=== PATIENT | female | born 1985 | race Caucasian/White ===

== ENCOUNTER 2022-01-16 13:35 | Emergency (ER) | payer OTHER, SELFPAY ==
[2022-01-16] VITALS (10 sets, daily range): BP systolic 94–116; BP diastolic 52–64; PULSE 55–83; RESP 16–18; TEMP 36.6; O2SAT 95–100; BMI 22.4
--- NOTE | 2022-01-16 15:12 | PC.NURSE ---
Provider Crew and RN at bedside. Patient set up for self swab.
--- NOTE | 2022-01-16 15:14 | PC.NURSE ---
patient reports abd pain and cramping in bladder. Reports pink tinged discharge. Has complicated history of PID, Tric and GC/CH.
--- NOTE | 2022-01-16 15:15 | ED_ITS ---
HPI - Female Genitourinary <KEM Castañeda - Last Filed: 01/16/22 19:34> General Chief complaint: Urogenital-Female Stated complaint: PID peeing out chunks of stuff and pain Time Seen by Provider: 01/16/22 14:30 Source: patient Mode of arrival: Ambulatory History of Present Illness HPI Narrative: This is a 37-year-old female presents to the emergency department with history of ovarian cyst, bacterial vaginosis and pelvic inflammatory disease with recurrence of pelvic inflammatory disease and states that for the last 5 days she is been taking Flagyl that was prescribed to her a few weeks ago for her pe lvic infection. She states that she just moved here from [place], was not able to get her prescription transferred and is concerned about her pelvic infection getting worse. She endorses having chunky discharge, pelvic pain, nausea with history of this off and on for the last few months. Patient : No Related Data Previous Rx's Medication Instructions Recorded doxycycline hyclate 100 mg capsule 100 mg PO BID PID 2 weeks #28 caps 01/16/22 hydrocodone 5 mg-acetaminophen 325 1 tab PO BID PRN pain #14 tabs 01/16/22 mg tablet metronidazole 500 mg tablet 500 mg PO BID 14 days #28 tabs 01/16/22 Allergies Allergy/AdvReac Type Severity Reaction Status Date / Time No Known Drug Allergies Allergy Verified 01/16/22 13:42 Review of Systems <KEM Castañeda - Last Filed: 01/16/22 19:34> Review of Systems Narrative: Review of systems is negative for acute abnormalities unless otherwise noted in HPI Patient History <KEM Castañeda - Last Filed: 01/16/22 19:34> tobacco type: cigarettes and vaping Substance Use Type: does not use Exam <KEM Castañeda Last Filed: 01/16/22 19:34> Narrative Exam Narrative: Reviewed vitals signs and nursing notes. General: cooperative, comfortable, in no acute distress, well groomed HEENT: symmetrical facial expressions, moist mucous membranes GI: abdomen soft, nontender to palpation, nondistended, without masses, rebound tenderness or exquisite tenderness with exam. Records Management Specialist: Adnexal tenderness bilaterally, moderate amount of clear/white vaginal discharge, painful with exam no rash, or significant odor MSK: moves all extremities, neurovascularly intact, no weakness, normal tone Skin: brisk capillary refill, without pallor or erythema Neuro: normal speech and cognition, A&O x3, ambulatory, clear speech Psych: mental status is grossly normal, congruent mood, normal affect, pleasant and cooperative Initial Vital Signs Initial Vital Signs: Vital Signs Temperature 97.8 F 01/16/22 13:42 Pulse Rate 83 01/16/22 13:42 Respiratory Rate 18 01/16/22 13:42 Blood Pressure 116/56 L 01/16/22 13:42 Pulse Oximetry 100 01/16/22 13:42 Oxygen Delivery Method 01/16/22 13:42 <Abraham Chinchilla DO - Last Filed: 01/16/22 20:17> Initial Vital Signs Initial Vital Signs: Vital Signs Temperature 97.8 F 01/16/22 13:42 Pulse Rate 83 01/16/22 13:42 Respiratory Rate 18 01/16/22 13:42 Blood Pressure 116/56 L 01/16/22 13:42 Pulse Oximetry 100 01/16/22 13:42 Oxygen Delivery Method 01/16/22 13:42 Course <KEM Castañeda - Last Filed: 01/16/22 19:34> Orders Ordered: ED Orders 01/16/22 14:10 Chlamydia Gonorrhea PCR -URINE Stat Urine Microscopic Stat 01/16/22 14:30 Test Urine Stat 01/16/22 15:12 Wet Prep Tric BV Maryjo Stat 01/16/22 16:07 US pelvic complete Stat 01/16/22 17:30 CBC Auto Diff [Complete Blood Count AUTO DIFF] Stat CMP [Comprehensive Metabolic Panel] Stat CRP [C-Reactive Protein Quant] Stat Lactate (Lactic Acid) Stat Procalcitonin Stat Prothrombin Time INR Stat Type and Screen Stat 01/16/22 17:42 Consult to Obstetrics Stat Discontinued Medications Doxycycline Hyclate (Doxycycline Hyclate 100 Mg Tablet) 100 mg PO NOW ONE Stop: 01/16/22 19:10 Last Admin: 01/16/22 19:22 Dose: 100 mg Documented By: NAHUM Ceftriaxone Sodium 500 mg/ (Dextrose) 50 mls @ 100 mls/hr IV NOW ONE Stop: 01/16/22 19:10 Last Admin: 01/16/22 19:58 Dose: Not Given Documented By: ANGIE Ceftriaxone Sodium 500 mg/ (Dextrose) 50 mls @ 100 mls/hr IV NOW ONE Stop: 01/16/22 20:14 Last Admin: 01/16/22 20:15 Dose: 100 mls/hr Documented By: NAHUM Ketorolac Tromethamine (Ketorolac 30 Mg/Ml Vial) 15 mg IM NOW ONE Stop: 01/16/22 17:21 Last Admin: 01/16/22 17:26 Dose: Not Given Documented By: ANGIE(2) Ketorolac Tromethamine (Ketorolac 30 Mg/Ml Vial) 15 mg IV NOW ONE Stop: 01/16/22 17:26 Last Admin: 01/16/22 17:40 Dose: 15 mg Documented By: SHERYL Metronidazole (Metronidazole 500 Mg Tablet) 500 mg PO NOW ONE Stop: 01/16/22 19:10 Last Admin: 01/16/22 19:22 Dose: 500 mg Documented By: NAHUM Consultations Consultation #1: Consultation with Dr. Silverio from OBGYN and she view patient's ultrasound, thinks that she has bilateral hydrosalpinx secondary to PID and recommends ongoing treatment of PID for another 14 days and wishes patient to have 500 mg of ceftriaxone, 2 weeks of doxycycline and 2 weeks of p.o. Flagyl b.i.d.. She will follow-up in the clinic for surgical treatment if it is not fully eradicated with antibiotics Vital Signs Vital signs: Vital Signs - 8 hr 01/16/22 13:42 01/16/22 15:39 01/16/22 15:39 Temperature 97.8 F Pulse Rate 83 83 Respiratory Rate 18 Blood Pressure 116/56 L 102/56 L Pulse Oximetry 100 98 Oxygen Delivery Method Room Air 01/16/22 16:00 01/16/22 16:00 01/16/22 16:38 Temperature Pulse Rate 77 55 L Respiratory Rate Blood Pressure 102/57 L Pulse Oximetry 95 Oxygen Delivery Method 01/16/22 17:00 01/16/22 17:30 01/16/22 18:00 Temperature Pulse Rate 77 83 73 Respiratory Rate Blood Pressure Pulse Oximetry 98 98 97 Oxygen Delivery Method 01/16/22 18:30 01/16/22 18:47 01/16/22 18:47 Temperature Pulse Rate 78 74 Respiratory Rate 18 Blood Pressure 94/52 L Pulse Oximetry 97 98 Oxygen Delivery Method <Abraham Chinchilla DO - Last Filed: 01/16/22 20:17> Orders Ordered: ED Orders 01/16/22 14:10 Chlamydia Gonorrhea PCR -URINE Stat Urine Microscopic Stat 01/16/22 14:30 Test Urine Stat 01/16/22 15:12 Wet Prep Tric BV Maryjo Stat 01/16/22 16:07 US pelvic complete Stat 01/16/22 17:30 CBC Auto Diff [Complete Blood Count AUTO DIFF] Stat CMP [Comprehensive Metabolic Panel] Stat CRP [C-Reactive Protein Quant] Stat Lactate (Lactic Acid) Stat Procalcitonin Stat Prothrombin Time INR Stat Type and Screen Stat 01/16/22 17:42 Consult to Obstetrics Stat Discontinued Medications Doxycycline Hyclate (Doxycycline Hyclate 100 Mg Tablet) 100 mg PO NOW ONE Stop: 01/16/22 19:10 Last Admin: 01/16/22 19:22 Dose: 100 mg Documented By: NAHUM Ceftriaxone Sodium 500 mg/ (Dextrose) 50 mls @ 100 mls/hr IV NOW ONE Stop: 01/16/22 19:10 Last Admin: 01/16/22 19:58 Dose: Not Given Documented By: ANGIE Ceftriaxone Sodium 500 mg/ (Dextrose) 50 mls @ 100 mls/hr IV NOW ONE Stop: 01/16/22 20:14 Last Admin: 01/16/22 20:15 Dose: 100 mls/hr Documented By: NAHUM Ketorolac Tromethamine (Ketorolac 30 Mg/Ml Vial) 15 mg IM NOW ONE Stop: 01/16/22 17:21 Last Admin: 01/16/22 17:26 Dose: Not Given Documented By: ANGIE(2) Ketorolac Tromethamine (Ketorolac 30 Mg/Ml Vial) 15 mg IV NOW ONE Stop: 01/16/22 17:26 Last Admin: 01/16/22 17:40 Dose: 15 mg Documented By: SHERYL Metronidazole (Metronidazole 500 Mg Tablet) 500 mg PO NOW ONE Stop: 01/16/22 19:10 Last Admin: 01/16/22 19:22 Dose: 500 mg Documented By: NAHUM Vital Signs Vital signs: Vital Signs - 8 hr 01/16/22 13:42 01/16/22 15:39 01/16/22 15:39 Temperature 97.8 F Pulse Rate 83 83 Respiratory Rate 18 Blood Pressure 116/56 L 102/56 L Pulse Oximetry 100 98 Oxygen Delivery Method Room Air 01/16/22 16:00 01/16/22 16:00 01/16/22 16:38 Temperature Pulse Rate 77 55 L Respiratory Rate Blood Pressure 102/57 L Pulse Oximetry 95 Oxygen Delivery Method 01/16/22 17:00 01/16/22 17:30 01/16/22 18:00 Temperature Pulse Rate 77 83 73 Respiratory Rate Blood Pressure Pulse Oximetry 98 98 97 Oxygen Delivery Method 01/16/22 18:30 01/16/22 18:47 01/16/22 18:47 Temperature Pulse Rate 78 74 Respiratory Rate 18 Blood Pressure 94/52 L Pulse Oximetry 97 98 Oxygen Delivery Method MDM - Female Genitourinary <KEM Castañeda - Last Filed: 01/16/22 19:34> Lab Data Result diagrams: 01/16/22 17:30 01/16/22 17:30 Labs: Lab Results 01/16/22 01/16/22 01/16/22 Range/Units 14:10 14:10 14:30 WBC (4.5-11.0) X10^3/uL RBC (4.0-5.2) X10^6/uL Hgb (12.0-16.0) g/dL Hct (36-46) % MCV (80-100) fL MCH (26-34) PG MCHC (30-36) % RDW (11.6-14.8) % Plt Count (150-400) X10^3/uL Neut % (Auto) (50-75) % Lymph % (Auto) (25-40) % [place] % (Auto) (3-14) % Eos % (Auto) (2-4) % Baso % (Auto) (0-2) % Neut # (Auto) (0179-5740) /uL Lymph # (Auto) (9899-8501) /uL [place] # (Auto) (0-900) /uL Eos # (Auto) (0-450) /uL Baso # (Auto) (0-100) /uL RBC Morphology Anisocytosis Microcytosis PT (10.1-12.7) SECONDS INR (0.9-1.3) Sodium (137-145) mmol/L Potassium (3.4-5.1) mmol/L Chloride (98-107) mmol/L Carbon Dioxide (22-32) mmol/L BUN (7-17) mg/dL Creatinine (0.52-1.04) mg/dL Estimated GFR (>60) mL/min BUN/Creatinine Ratio (6-22) Glucose (70-100) mg/dL Lactate (0.7-2.1) mmol/L Calcium (8.4-10.2) mg/dL Total Bilirubin (0.2-1.3) mg/dL AST (14-36) IU/L ALT (<35) IU/L Alkaline Phosphatase (38-126) U/L C-Reactive Protein (<1.0) mg/dL Total Protein (6.3-8.2) g/dL Albumin (3.5-5.0) g/dL Globulin (1.7-4.1) g/dL Albumin/Globulin Ratio (1.0-2.8) Procalcitonin (<0.5) ng/mL Urine RBC None seen (0-5/HPF) Urine WBC 0-1/hpf (0-5/HPF) Ur Squamous Epith Cells 5-10 /hpf H (0-5/HPF) Urine Bacteria None seen (None) Urine Mucus 1+ H (Negative) Ur Culture Indicated? Cult not indicated Urine Test Negative (Negative) Ur Chlamydia DNA (PCR) Not detected N gonorrhoeae DNA (PCR) Not detected Blood Type Antibody Screen 01/16/22 01/16/22 01/16/22 Range/Units 17:30 17:30 17:30 WBC 7.8 (4.5-11.0) X10^3/uL RBC 4.24 (4.0-5.2) X10^6/uL Hgb 10.5 L (12.0-16.0) g/dL Hct 31.7 L (36-46) % MCV 74.7 L (80-100) fL MCH 24.7 L (26-34) PG MCHC 33.0 (30-36) % RDW 26.3 H (11.6-14.8) % Plt Count 243 (150-400) X10^3/uL Neut % (Auto) 68.9 (50-75) % Lymph % (Auto) 23.1 L (25-40) % Custer % (Auto) 6.0 (3-14) % Eos % (Auto) 1.1 L (2-4) % Baso % (Auto) 0.9 (0-2) % Neut # (Auto) 5400 (1973-6441) /uL Lymph # (Auto) 1800 (4887-4062) /uL Custer # (Auto) 500 (0-900) /uL Eos # (Auto) 100 (0-450) /uL Baso # (Auto) 100 (0-100) /uL RBC Morphology See below Anisocytosis 2+ H Microcytosis 1+ H PT 12.3 (10.1-12.7) SECONDS INR 1.1 (0.9-1.3) Sodium 139 (137-145) mmol/L Potassium 3.7 (3.4-5.1) mmol/L Chloride 106 (98-107) mmol/L Carbon Dioxide 26 (22-32) mmol/L BUN 9 (7-17) mg/dL Creatinine 0.50 L (0.52-1.04) mg/dL Estimated GFR > 60 (>60) mL/min BUN/Creatinine Ratio 18.0 (6-22) Glucose 121 H (70-100) mg/dL Lactate (0.7-2.1) mmol/L Calcium 8.4 (8.4-10.2) mg/dL Total Bilirubin 0.2 (0.2-1.3) mg/dL AST 29 (14-36) IU/L ALT 21 (<35) IU/L Alkaline Phosphatase 50 (38-126) U/L C-Reactive Protein < 0.5 (<1.0) mg/dL Total Protein 7.1 (6.3-8.2) g/dL Albumin 4.1 (3.5-5.0) g/dL Globulin 3.0 (1.7-4.1) g/dL Albumin/Globulin Ratio 1.4 (1.0-2.8) Procalcitonin 0.04 (<0.5) ng/mL Urine RBC (0-5/HPF) Urine WBC (0-5/HPF) Ur Squamous Epith Cells (0-5/HPF) Urine Bacteria (None) Urine Mucus (Negative) Ur Culture Indicated? Urine Test (Negative) Ur Chlamydia DNA (PCR) N gonorrhoeae DNA (PCR) Blood Type Antibody Screen 01/16/22 01/16/22 Range/Units 17:30 17:30 WBC (4.5-11.0) X10^3/uL RBC (4.0-5.2) X10^6/uL Hgb (12.0-16.0) g/dL Hct (36-46) % MCV (80-100) fL MCH (26-34) PG MCHC (30-36) % RDW (11.6-14.8) % Plt Count (150-400) X10^3/uL Neut % (Auto) (50-75) % Lymph % (Auto) (25-40) % Custer % (Auto) (3-14) % Eos % (Auto) (2-4) % Baso % (Auto) (0-2) % Neut # (Auto) (3548-7095) /uL Lymph # (Auto) (8509-6491) /uL Custer # (Auto) (0-900) /uL Eos # (Auto) (0-450) /uL Baso # (Auto) (0-100) /uL RBC Morphology Anisocytosis Microcytosis PT (10.1-12.7) SECONDS INR (0.9-1.3) Sodium (137-145) mmol/L Potassium (3.4-5.1) mmol/L Chloride (98-107) mmol/L Carbon Dioxide (22-32) mmol/L BUN (7-17) mg/dL Creatinine (0.52-1.04) mg/dL Estimated GFR (>60) mL/min BUN/Creatinine Ratio (6-22) Glucose (70-100) mg/dL Lactate 1.0 (0.7-2.1) mmol/L Calcium (8.4-10.2) mg/dL Total Bilirubin (0.2-1.3) mg/dL AST (14-36) IU/L ALT (<35) IU/L Alkaline Phosphatase (38-126) U/L C-Reactive Protein (<1.0) mg/dL Total Protein (6.3-8.2) g/dL Albumin (3.5-5.0) g/dL Globulin (1.7-4.1) g/dL Albumin/Globulin Ratio (1.0-2.8) Procalcitonin (<0.5) ng/mL Urine RBC (0-5/HPF) Urine WBC (0-5/HPF) Ur Squamous Epith Cells (0-5/HPF) Urine Bacteria (None) Urine Mucus (Negative) Ur Culture Indicated? Urine Test (Negative) Ur Chlamydia DNA (PCR) N gonorrhoeae DNA (PCR) Blood Type O Positive Antibody Screen Negative Point of Care Testing Test Results Negative Urine Dip Bedside Urine Glucose Negative Bedside Urine Bilirubin - Negative Bedside Urine Ketone - Negative Urine Specific [place] 1.030 Bedside Urine Occult Blood - Negative Bedside Urine pH 5.5 Bedside Urine Protein - Negative Bedside Urine Urobilinogen - Negative Bedside Urine Nitrite - Negative Bedside Urine Leukocytes - Negative Esterase Imaging Data US - PRESCHOOL ASSOCIATE TEACHER: Radiologist's Impression: PROCEDURE:? US PELVIC COMPLETE ? INDICATIONS:? PAIN. HISTORY OF PELVIC INFLAMMATORY DISEASE. ? TECHNIQUE:? Real-time scanning was performed of the pelvic organs, with image documentation.? Additional endovaginal scanning was necessary due to incomplete visualization of the adnexal and endometrial structures by transabdominal scanning.? ? COMPARISON:? None. ? FINDINGS:? ?? Uterus:? Uterus is anteverted and normal in size at 9.1 x 5.5 x 4.2 cm. The myometrium is homogeneous. ? The endometrium measures 14 mm combined thickness.? Nabothian cysts at the cervix.? Normal uterine vascularity. ? Ovaries:? The right ovary measures 4.5 x 3.0 x 2.4 cm, with a calculated ovarian volume of 32 cc. The left ovary measures 8.5 x 5.9 x 5.9 cm, with a calculated ovarian volume of 130 cc.? There is a fluid-filled tubular structure in the right adnexa extending towards the right ovary measuring 6.1 x 3.3 x 3.4 cm.? There is increased vascularity in septations.? No significant solid component.? In the left adnexa, there is a septated cystic structure measuring 8.0 x 5.4 x 5.8 cm with lace-like linear internal echoes suggestive of a complex hemorrhagic cyst. ? Other:? No pathologic free abdominal or pelvic fluid. ? ? IMPRESSION:? ? 1. Findings suggesting right adnexal hydrosalpinx, potentially resolving inf ection given history. ? 2. Left ovarian hemorrhagic cyst.? Follow-up in 2-3 months recommended to assess for resolution. ? We strive to produce accurate, complete, and clear reports of imaging services. To assist us in improving patient care, this report was composed using standard report templates and voice recognition software. Therefore, it may contain abnormal punctuation, insertions and/or omissions. Occasional wrong-word or sound-alike substitutions may occur. Though we review the report and make efforts to correct it, we do recommend that the report be read carefully in proper context to recognize any text inaccuracies. ? ? Dictated by: Steffanie Trotter M.D. on 01/16/2022 at 18:40 ? ? Approved by: Steffanie Trotter M.D. on 01/16/2022 at 18:44 ? ECG Data Interpretation: Name: Stormy Tan Age/Sex: 37/F Attend Dr: Latonya Nicholas Unit#: [id number] : 1985Location: ED Re01/16/22 Disch: Status: REG ER SPEC #: [id number] LORA: 01/16/22 STATUS: COMP REQ #: [id number] SPDESC: RECD: 01/16/[address]: Latonya Nicholas SOURCE: Vaginal ENTR: 01/16/[address]: Amado,Doctor FAX TO: ORDERED: Wet Prep Procedure Result Verified Site Wet Prep Tric BV Maryjo Final 01/16/221520 White blood cells No WBC seen Clue cells: None seen Yeast: None seen Trichomonas: None seen MDM Narrative Medical decision making narrative: This is a 37-year-old female presents to the emergency department describing 1 year of pelvic issues that started with a 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 She states that she had gonorrhea, chlamydia, and Trichomonas from her previous partner, by the time her infection was found, she was septic and was admitted to the hospital for IV antibiotics. She states that this was months ago, she is had recurrence of her pelvic pain and pelvic inflammatory disease symptoms and 5 days ago recently started taking a prescription of Flagyl that she had left over. Today on exam, her pelvic exam was tender to bilateral adnexa with palpation, vaginal discharge was negative for gonorrhea and chlamydia as well as a negative wet mount. Patient has a his tory iron deficiency anemia, states that she has not been able to take her iron recently. Lab work is fairly unremarkable except for anemia with a hemoglobin of 10.5 and hematocrit 31.7, this looks most like iron-deficiency anemia, no electrolyte abnormalities, creatinine is normal, lactate is 1.0 without elevation of CRP or procalcitonin. UA had squamous epithelial cells and mucus which is likely contaminant. Consultation with Nusrat recommends 2 weeks of treatment for pelvic inflammatory disease, she will likely need surgical treatment of her bilateral hydrosalpinx secondary to PID.. She was treated with ceftriaxone, Flagyl, doxycycline and given pain control with hydrocodone. Recom mended to stay hydrated, return for worsening symptoms, she states understanding, Dr. Silverio will be happy to see patient in clinic. No peritoneal signs on abdominal exam. Patient remains p.o. tolerant. Serial abdominal exam without increase in abdominal pain. Given history and exam, low suspicion for acute abdominal process, such as acute cholecystitis, pancreatitis, perforated viscus, atypical appendicitis, colitis, diverticulitis or torsion. Extensive conversation about ER return precautions and need for close follow-up. <Abraham Chinchilla, DO - Last Filed: 01/16/22 20:17> Lab Data Labs: Lab Results 01/16/22 01/16/22 01/16/22 Range/Units 14:10 14:10 14:30 WBC (4.5-11.0) X10^3/uL RBC (4.0-5.2) X10^6/uL Hgb (12.0-16.0) g/dL Hct (36-46) % MCV (80-100) fL MCH (26-34) PG MCHC (30-36) % RDW (11.6-14.8) % Plt Count (150-400) X10^3/uL Neut % (Auto) (50-75) % Lymph % (Auto) (25-40) % [place] % (Auto) (3-14) % Eos % (Auto) (2-4) % Baso % (Auto) (0-2) % Neut # (Auto) (1292-1968) /uL Lymph # (Auto) (5729-1550) /uL C[place] # (Auto) (0-900) /uL Eos # (Auto) (0-450) /uL Baso # (Auto) (0-100) /uL RBC Morphology Anisocytosis Microcytosis PT (10.1-12.7) SECONDS INR (0.9-1.3) Sodium (137-145) mmol/L Potassium (3.4-5.1) mmol/L Chloride (98-107) mmol/L Carbon Dioxide (22-32) mmol/L BUN (7-17) mg/dL Creatinine (0.52-1.04) mg/dL Estimated GFR (>60) mL/min BUN/Creatinine Ratio (6-22) Glucose (70-100) mg/dL Lactate (0.7-2.1) mmol/L Calcium (8.4-10.2) mg/dL Total Bilirubin (0.2-1.3) mg/dL AST (14-36) IU/L ALT (<35) IU/L Alkaline Phosphatase (38-126) U/L C-Reactive Protein (<1.0) mg/dL Total Protein (6.3-8.2) g/dL Albumin (3.5-5.0) g/dL Globulin (1.7-4.1) g/dL Albumin/Globulin Ratio (1.0-2.8) Procalcitonin (<0.5) ng/mL Urine RBC None seen (0-5/HPF) Urine WBC 0-1/hpf (0-5/HPF) Ur Squamous Epith Cells 5-10 /hpf H (0-5/HPF) Urine Bacteria None seen (None) Urine Mucus 1+ H (Negative) Ur Culture Indicated? Cult not indicated Urine Test Negative (Negative) Ur Chlamydia DNA (PCR) Not detected N gonorrhoeae DNA (PCR) Not detected Blood Type Antibody Screen 01/16/22 01/16/22 01/16/22 Range/Units 17:30 17:30 17:30 WBC 7.8 (4.5-11.0) X10^3/uL RBC 4.24 (4.0-5.2) X10^6/uL Hgb 10.5 L (12.0-16.0) g/dL Hct 31.7 L (36-46) % MCV 74.7 L (80-100) fL MCH 24.7 L (26-34) PG MCHC 33.0 (30-36) % RDW 26.3 H (11.6-14.8) % Plt Count 243 (150-400) X10^3/uL Neut % (Auto) 68.9 (50-75) % Lymph % (Auto) 23.1 L (25-40) % [place] % (Auto) 6.0 (3-14) % Eos % (Auto) 1.1 L (2-4) % Baso % (Auto) 0.9 (0-2) % Neut # (Auto) 5400 (1008-8817) /uL Lymph # (Auto) 1800 (3820-7891) /uL [place] # (Auto) 500 (0-900) /uL Eos # (Auto) 100 (0-450) /uL Baso # (Auto) 100 (0-100) /uL RBC Morphology See below Anisocytosis 2+ H Microcytosis 1+ H PT 12.3 (10.1-12.7) SECONDS INR 1.1 (0.9-1.3) Sodium 139 (137-145) mmol/L Potassium 3.7 (3.4-5.1) mmol/L Chloride 106 (98-107) mmol/L Carbon Dioxide 26 (22-32) mmol/L BUN 9 (7-17) mg/dL Creatinine 0.50 L (0.52-1.04) mg/dL Estimated GFR > 60 (>60) mL/min BUN/Creatinine Ratio 18.0 (6-22) Glucose 121 H (70-100) mg/dL Lactate (0.7-2.1) mmol/L Calcium 8.4 (8.4-10.2) mg/dL Total Bilirubin 0.2 (0.2-1.3) mg/dL AST 29 (14-36) IU/L ALT 21 (<35) IU/L Alkaline Phosphatase 50 (38-126) U/L C-Reactive Protein < 0.5 (<1.0) mg/dL Total Protein 7.1 (6.3-8.2) g/dL Albumin 4.1 (3.5-5.0) g/dL Globulin 3.0 (1.7-4.1) g/dL Albumin/Globulin Ratio 1.4 (1.0-2.8) Procalcitonin 0.04 (<0.5) ng/mL Urine RBC (0-5/HPF) Urine WBC (0-5/HPF) Ur Squamous Epith Cells (0-5/HPF) Urine Bacteria (None) Urine Mucus (Negative) Ur Culture Indicated? Urine Test (Negative) Ur Chlamydia DNA (PCR) N gonorrhoeae DNA (PCR) Blood Type Antibody Screen 01/16/22 01/16/22 Range/Units 17:30 17:30 WBC (4.5-11.0) X10^3/uL RBC (4.0-5.2) X10^6/uL Hgb (12.0-16.0) g/dL Hct (36-46) % MCV (80-100) fL MCH (26-34) PG MCHC (30-36) % RDW (11.6-14.8) % Plt Count (150-400) X10^3/uL Neut % (Auto) (50-75) % Lymph % (Auto) (25-40) % [place] % (Auto) (3-14) % Eos % (Auto) (2-4) % Baso % (Auto) (0-2) % Neut # (Auto) (5433-8652) /uL Lymph # (Auto) (0329-4616) /uL [place] # (Auto) (0-900) /uL Eos # (Auto) (0-450) /uL Baso # (Auto) (0-100) /uL RBC Morphology Anisocytosis Microcytosis PT (10.1-12.7) SECONDS INR (0.9-1.3) Sodium (137-145) mmol/L Potassium (3.4-5.1) mmol/L Chloride (98-107) mmol/L Carbon Dioxide (22-32) mmol/L BUN (7-17) mg/dL Creatinine (0.52-1.04) mg/dL Estimated GFR (>60) mL/min BUN/Creatinine Ratio (6-22) Glucose (70-100) mg/dL Lactate 1.0 (0.7-2.1) mmol/L Calcium (8.4-10.2) mg/dL Total Bilirubin (0.2-1.3) mg/dL AST (14-36) IU/L ALT (<35) IU/L Alkaline Phosphatase (38-126) U/L C-Reactive Protein (<1.0) mg/dL Total Protein (6.3-8.2) g/dL Albumin (3.5-5.0) g/dL Globulin (1.7-4.1) g/dL Albumin/Globulin Ratio (1.0-2.8) Procalcitonin (<0.5) ng/mL Urine RBC (0-5/HPF) Urine WBC (0-5/HPF) Ur Squamous Epith Cells (0-5/HPF) Urine Bacteria (None) Urine Mucus (Negative) Ur Culture Indicated? Urine Test (Negative) Ur Chlamydia DNA (PCR) N gonorrhoeae DNA (PCR) Blood Type O Positive Antibody Screen Negative Point of Care Testing Test Results Negative Urine Dip Bedside Urine Glucose Negative Bedside Urine Bilirubin - Negative Bedside Urine Ketone - Negative Urine Specific [place] 1.030 Bedside Urine Occult Blood - Negative Bedside Urine pH 5.5 Bedside Urine Protein - Negative Bedside Urine Urobilinogen - Negative Bedside Urine Nitrite - Negative Bedside Urine Leukocytes - Negative Esterase Discharge Plan Departure Patient Disposition: Home Clinical Impression: Hydrosalpinx, Pelvic pain, Hemorrhagic ovarian cyst Iron deficiency anemia Qualifiers: Iron deficiency anemia type: unspecified iron deficiency Qualified Code(s): D50.9 - Iron deficiency anemia, unspecified Instructions: Pelvic Inflammatory Disease Activity Restrictions/Additional Instructions: *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 Dr. Silverio would like to see you in the clinic, she or her partner Dr. Rey perform surgeries to resolve this for you and they are aware of your case. Please call and set up follow-up appointment with their office. Please take these medications as prescribed, use the pain pills in addition to Tylenol and ibuprofen as needed for your pain, if you become constipated, your pain may get worse so consider using MiraLax daily to help offset the constipating medications. So glad that you came in for eval uation, I wish you the best, thank you for your patience today. HYDROSALPINX After PID resolves, the damaged fallopian tube can become blocked, fill with sterile fluid, and become enlarged. Damage to the fallopian tube from previous surgery or adhesions can also result in hydrosalpinx. Hydrosalpinx may be associated with pain or may be asymptomatic. If your infection is not fully treated, surgical removal of a hydrosalpinx is indicated. CONTROLLED SUBSTANCE DISCHARGE (Narcotic/benzodiazepine/Flexeril/Phenergan) 1. You have been prescribed narcotic medications, it does have acetaminophen/Tylenol/paracetamol in it, DO NOT TAKE MORE THAN 4,00mg in 24 hours of Tylenol. *Tramadol does not contain tylenol. 2. Please understand that we cannot provide further refills of narcotics, benzodiazepines or controlled substances through the ED and her pain management will need to be through your provider. 3. While on these medications you cannot drive or operate heavy machinery. 4. You cannot sign legal documents or perform any duties such as this. 5. As long as you are taking opiate pain medications he should also be taking a stool softener such as Colace, Dulcolax, MiraLAX or prune juice, to help avoid constipation. *What to do: *Please continue to take your regular medications as directed. [x ] New medication prescriptions sent to your pharmacy: [[facility] ] [ ] New medication written as a paper prescription [ ] No new medications given *Please follow up with your primary care provider in 2-3 days, call for an appointment. Let them know you were seen in the Emergency Department and that we asked that you be seen for follow-up. We will electronically transmit a record of today's note if your PCP is in our system *If you do not have a primary care provider please contact [phone] to establish care with one of [facility] primary care providers. *Return to Emergency Department if you should have any new, worsening, or concerning symptoms, such as [fever greater than 101F, chills, worsening pain, persistent vomiting or other bothersome symptoms]. Prescriptions: New doxycycline hyclate 100 mg capsule 100 mg PO BID 14 Days Qty: 28 0RF metronidazole 500 mg tablet 500 mg PO BID 14 Days Qty: 28 0RF hydrocodone-acetaminophen 5-325 mg tablet 1 tab PO BID PRN (Reason: pain) Qty: 14 0RF Referrals: Cookie Silverio MD [Physician] - Tomas Rey MD [Physician] - <Abraham Chinchilla DO - Last Filed: 01/16/22 20:17> Cosign ED Attending Chrisature Attestation: I was immediately available in the department for consultation. This do cumentation has been reviewed and I agree with assessment and plan. Supervised by Abraham Chinchilla DO
[2022-01-16 15:44] LABS: Urine N gonorrhoeae NOT DETECTED
[2022-01-16 15:51] LABS: Urine Chlamydia NOT DETECTED
--- NOTE | 2022-01-16 16:07 | DI.US.S_ITS ---
PROCEDURE: US PELVIC COMPLETE INDICATIONS: PAIN. HISTORY OF PELVIC INFLAMMATORY DISEASE. TECHNIQUE: Real-time scanning was performed of the pelvic organs, with image documentation. Additional endovaginal scanning was necessary due to incomplete visualization of the adnexal and endometrial structures by transabdominal scanning. COMPARISON: None. FINDINGS: Uterus: Uterus is anteverted and normal in size at 9.1 x 5.5 x 4.2 cm. The myometrium is homogeneous. The endometrium measures 14 mm combined thickness. Nabothian cysts at the cervix. Normal uterine vascularity. Ovaries: The right ovary measures 4.5 x 3.0 x 2.4 cm, with a calculated ovarian volume of 32 cc. The left ovary measures 8.5 x 5.9 x 5.9 cm, with a calculated ovarian volume of 130 cc. There is a fluid-filled tubular structure in the right adnexa extending towards the right ovary measuring 6.1 x 3.3 x 3.4 cm. There is increased vascularity in septations. No significant solid component. In the left adnexa, there is a septated cystic structure measuring 8.0 x 5.4 x 5.8 cm with lace-like linear internal echoes suggestive of a complex hemorrhagic cyst. Other: No pathologic free abdominal or pelvic fluid. IMPRESSION: 1. Findings suggesting right adnexal hydrosalpinx, potentially resolving infection given history. 2. Left ovarian hemorrhagic cyst. Follow-up in 2-3 months recommended to assess for resolution. We strive to produce accurate, complete, and clear reports of imaging services. To assist us in improving patient care, this report was composed using standard report templates and voice recognition software. Therefore, it may contain abnormal punctuation, insertions and/or omissions. Occasional wrong-word or sound-alike substitutions may occur. Though we review the report and make efforts to correct it, we do recommend that the report be read carefully in proper context to recognize any text inaccuracies. Dictated by: Steffanie Trotter M.D. on 01/16/2022 at 18:40 Approved by: Steffanie Trotter M.D. on 01/16/2022 at 18:44
[2022-01-16 16:14] LABS: Bacteria Urine None Seen; Culture Indicated Urine Cult Not Indicated; Mucus Urine 1+ (Negative); RBC Urine None Seen (0-5/HPF); Squamous Epithelial Cell Urine 5-10 /HPF (0-5/HPF); WBC Urine 0-1/HPF (0-5/HPF)
[2022-01-16 16:15] LABS: Pregnancy Test Urine Negative (Negative)
[2022-01-16] MEDS: KETOROLAC 30 MG/ML VIAL 15 MG IV (17:40)
[2022-01-16 17:48] LABS: Add Manual Diff / Slide Review NO; Basophils Absolute Auto 100 /uL (0-100); Basophils Percent Auto 0.9 % (0-2); Eosinophils Absolute Auto 100 /uL (0-450); Eosinophils Percent Auto 1.1 % (2-4); Hematocrit 31.7 % (36-46); Hemoglobin 10.5 g/dL (12.0-16.0); Lymphocytes Absolute Auto 1800 /uL (1100-4500); Lymphocytes Percent Auto 23.1 % (25-40); Mean Corpuscular Hemoglobin 24.7 PG (26-34); Mean Corpuscular Volume 74.7 fL (80-100); Monocytes Absolute Auto 500 /uL (0-900); Neutrophils Absolute Auto 5400 /uL (1500-7000); Neutrophils Percent Auto 68.9 % (50-75); Platelet Count 243 X10^3/uL (150-400); Red Blood Cell Count 4.24 X10^6/uL (4.0-5.2); Red Cell Distribution Width 26.3 % (11.6-14.8); White Blood Cell Count 7.8 X10^3/uL (4.5-11.0)
[2022-01-16 17:54] LABS: INR 1.1 (0.9-1.3); Prothrombin Time 12.3 SECONDS (10.1-12.7)
[2022-01-16 18:02] LABS: Alanine Aminotransferase 21 IU/L (<35); Albumin 4.1 g/dL (3.5-5.0); Albumin Globulin Ratio 1.4 (1.0-2.8); Alkaline Phosphatase 50 U/L (38-126); Aspartate Aminotransferase 29 IU/L (14-36); Bilirubin Total 0.2 mg/dL (0.2-1.3); Blood Urea Nitrogen 9 mg/dL (7-17); C-Reactive Protein Quant < 0.5 mg/dL (<1.0); Calcium 8.4 mg/dL (8.4-10.2); Carbon Dioxide 26 mmol/L (22-32); Chloride 106 mmol/L (98-107); Estimated Glomerular Filt Rate > 60 mL/min (>60); Glucose 121 mg/dL (70-100); HEMOLYSIS < 15 (0-50); Potassium 3.7 mmol/L (3.4-5.1); Sodium 139 mmol/L (137-145); Total Protein 7.1 g/dL (6.3-8.2)
[2022-01-16 18:16] LABS: Procalcitonin 0.04 ng/mL (<0.5)
[2022-01-16 18:19] LABS: Anisocytosis 2+; Microcytosis 1+
[2022-01-16] MEDS: metroNIDAZOLE 500 MG TABLET PO (19:22)
[2022-01-16] MEDS: DOXYCYCLINE HYCLATE 100 MG TABLET PO (19:22)
[2022-01-16] MEDS: cefTRIAXone 500 MG in DEXTROSE 5 % IN WATER 50 ML 100 MG IV (20:15)
== END 2022-01-16 20:20 | disposition home or self-care (01) ==
PROVIDERS: Emergency Medicine; Emergency Provider Nurse Practitioner Critical Care Medicine
DX: N70.11 Chronic salpingitis (principal); R10.2 Pelvic and perineal pain; N83.209 Unspecified ovarian cyst, unspecified side; D50.9 Iron deficiency anemia, unspecified
CPT/HCPCS: 36415; 76830; 76856; 80053; 81003; 81015; 81025; 83605; 84145; 85025; 85610; 86140; 86850; 86900; 86901; 87210; 87491; 87591; 93975; 96374; 96375; 99284; J0696; J1885

== ENCOUNTER 2022-06-05 14:42 | Emergency (ER) | payer OTHER, MEDICAID, SELFPAY ==
[2022-06-05 15:01] VITALS: BP 114/56; PULSE 85; RESP 16; TEMP 37.1; O2SAT 97; BMI 24.6
[2022-06-05 16:02] LABS: Add Manual Diff / Slide Review NO; Basophils Absolute Auto 100 /uL (0-100); Eosinophils Absolute Auto 100 /uL (0-450); Eosinophils Percent Auto 1.8 % (2-4); Hematocrit 39.2 % (36-46); Hemoglobin 13.4 g/dL (12.0-16.0); Lymphocytes Absolute Auto 1900 /uL (1100-4500); Lymphocytes Percent Auto 23.9 % (25-40); Mean Corpuscular HGB Conc 34.1 % (30-36); Mean Corpuscular Hemoglobin 29.9 PG (26-34); Mean Corpuscular Volume 87.7 fL (80-100); Monocytes Absolute Auto 500 /uL (0-900); Monocytes Percent Auto 6.8 % (3-14); Neutrophils Absolute Auto 5300 /uL (1500-7000); Neutrophils Percent Auto 66.5 % (50-75); Platelet Count 212 X10^3/uL (150-400); Red Blood Cell Count 4.47 X10^6/uL (4.0-5.2); Red Cell Distribution Width 16.3 % (11.6-14.8)
[2022-06-05 16:10] LABS: Alanine Aminotransferase 28 IU/L (<35); Albumin 4.7 g/dL (3.5-5.0); Albumin Globulin Ratio 1.5 (1.0-2.8); Alkaline Phosphatase 69 U/L (38-126); Aspartate Aminotransferase 34 IU/L (14-36); BUN Creatinine Ratio 24.5 (6-22); Bilirubin Total 0.2 mg/dL (0.2-1.3); Blood Urea Nitrogen 12 mg/dL (7-17); Calcium 9.2 mg/dL (8.4-10.2); Carbon Dioxide 26 mmol/L (22-32); Chloride 102 mmol/L (98-107); Estimated Glomerular Filt Rate > 60 mL/min (>60); Globulin 3.2 g/dL (1.7-4.1); Glucose 109 mg/dL (70-100); HEMOLYSIS < 15 (0-50); Potassium 3.3 mmol/L (3.4-5.1); Sodium 138 mmol/L (137-145); Total Protein 7.9 g/dL (6.3-8.2)
--- NOTE | 2022-06-05 20:47 | ED_ITS ---
HPI - Female Genitourinary General Chief complaint: Urogenital-Female Stated complaint: kidney pain/late period/condom stuck inside/spotti Time Seen by Provider: 06/05/22 20:09 Source: patient Mode of arrival: Ambulatory History of Present Illness HPI Narrative: Patient is 47-year-old female former methamphetamine user, history of PID with right adnexa hydrosalpinx with prior history of infection, presents today with bilateral kidney pain. She reports bilateral kidney pain ongoing for couple days. No painful or frequent urination. Pain does not radiate anywhere. No fever chills nausea or vomiting. She reports that her menstrual cycle is about 17 days late she is had some mild spotting. She also reports that during recent intercourse a condom got stuck in her vagina which she immediately removed. She denies any nausea vomiting rigors. She denies any abnormal vaginal discharge. She previously had PID. She is not concern for new infection. She is practicing safe sex. Related Data Previous Rx's Medication Instructions Recorded hydrocodone 5 mg-acetaminophen 325 1 tab PO BID PRN pain #14 tabs 01/16/22 mg tablet Allergies Allergy/AdvReac Type Severity Reaction Status Date / Time No Known Drug Allergies Allergy Verified 01/16/22 13:42 Review of Systems Review of Systems ROS Unobtainable: All systems reviewed & are unremarkable except as noted in HPI and below Patient History tobacco type: cigarettes alcohol intake frequency: 0-2 drinks per day Substance Use Type: marijuana Exam Initial Vital Signs Initial Vital Signs: Vital Signs Temperature 98.7 F 06/05/22 15:01 Pulse Rate 85 06/05/22 15:01 Respiratory Rate 16 06/05/22 15:01 Blood Pressure 114/56 L 06/05/22 15:01 Pulse Oximetry 97 06/05/22 15:01 Oxygen Delivery Method Room Air 06/05/22 15:01 GENERAL: Well-appearing, well-nourished and in no acute distress. HEENT: Head atraumatic,EOMI, pupils reactive, face symmetric, moist mucous membranes CARDIOVASCULAR: Regular rate and rhythm without murmurs, rubs or gallops. RESPIRATORY: Breath sounds equal bilaterally, no wheezes rales or rhonchi. ABDOMEN: Soft, nontender. Normoactive bowel sounds all 4 quadrants. No guarding or rebound. PELVIC: External genitalia is normal, no vaginal bleeding, no vaginal discharge, no odor, cervical os is closed, no adnexal tenderness : No CVA tenderness EXTREMITIES: Normal range of motion, no clubbing or edema. Neurovascularly inta ct NEUROLOGICAL: Alert and oriented x4. SKIN: Warm, dry, no laceration, no petechiae, no rashes or lesions. Course Orders Ordered: ED Orders 06/05/22 21:08 Chlamydia/Gonoc/Myco Genital Stat Genital Culture Stat Wet Prep Tric BV Maryjo Stat Discontinued Medications Ondansetron HCl (Ondansetron 4 Mg Odt) 4 mg SL NOW PRN PRN Reason: Nausea And Vomiting Ondansetron HCl (Ondansetron 4 Mg/2 Ml Inj) 4 mg IV NOW PRN PRN Reason: Nausea And Vomiting Vital Signs Vital signs: Vital Signs - 8 hr 06/05/22 15:01 Temperature 98.7 F Pulse Rate 85 Respiratory Rate 16 Blood Pressure 114/56 L Pulse Oximetry 97 Oxygen Delivery Method Room Air MDM - Female Genitourinary Lab Data 06/05/22 15:45 06/05/22 15:45 Labs: Lab Results 06/05/22 06/05/22 Range/Units 15:45 15:45 WBC 8.0 (4.5-11.0) X10^3/uL RBC 4.47 (4.0-5.2) X10^6/uL Hgb 13.4 (12.0-16.0) g/dL Hct 39.2 (36-46) % MCV 87.7 (80-100) fL MCH 29.9 (26-34) PG MCHC 34.1 (30-36) % RDW 16.3 H (11.6-14.8) % Plt Count 212 (150-400) X10^3/uL Neut % (Auto) 66.5 (50-75) % Lymph % (Auto) 23.9 L (25-40) % Wilcox % (Auto) 6.8 (3-14) % Eos % (Auto) 1.8 L (2-4) % Baso % (Auto) 1.0 (0-2) % Neut # (Auto) 5300 (2457-1160) /uL Lymph # (Auto) 1900 (4785-6290) /uL Wilcox # (Auto) 500 (0-900) /uL Eos # (Auto) 100 (0-450) /uL Baso # (Auto) 100 (0-100) /uL Sodium 138 (137-145) mmol/L Potassium 3.3 L (3.4-5.1) mmol/L Chloride 102 (98-107) mmol/L Carbon Dioxide 26 (22-32) mmol/L BUN 12 (7-17) mg/dL Creatinine 0.49 L (0.52-1.04) mg/dL Estimated GFR > 60 (>60) mL/min BUN/Creatinine Ratio 24.5 H (6-22) Glucose 109 H (70-100) mg/dL Calcium 9.2 (8.4-10.2) mg/dL Total Bilirubin 0.2 (0.2-1.3) mg/dL AST 34 (14-36) IU/L ALT 28 (<35) IU/L Alkaline Phosphatase 69 (38-126) U/L Total Protein 7.9 (6.3-8.2) g/dL Albumin 4.7 (3.5-5.0) g/dL Globulin 3.2 (1.7-4.1) g/dL Albumin/Globulin Ratio 1.5 (1.0-2.8) Point of Care Testing Test Results Negative Urine Dip Bedside Urine Glucose Negative Bedside Urine Bilirubin - Negative Bedside Urine Ketone - Negative Urine Specific [place] 1.030 Bedside Urine Occult Blood - Negative Bedside Urine pH 5.5 Bedside Urine Protein - Negative Bedside Urine Urobilinogen - Negative Bedside Urine Nitrite - Negative Bedside Urine Leukocytes - Negative Esterase MDM Narrative Medical decision making narrative: Patient 37-year-old female history of PID presenting today with bilateral flank pain. It has been ongoing for couple of days. There is no evidence UTI she is no leukocytosis. She isn't really having significant vaginal discharge but pelvic exam and cultures were done and taken based on history. No concern based on exam to start antibiotics immediately. Also no foreign body was found. Recommend waiting for cultures. She overall appears well vitals are stable no evidence of SIRS or sepsis. No suspicion for ovarian torsion or abscess. She really is doing well she was happy to find that she is not . At this time discharge with supportive care. Discharge Plan Departure Patient Disposition: Home Clinical Impression: Kidney pain Instructions: DI for Abdominal Pain-Adult Activity Restrictions/Additional Instructions: *You have been diagnosed with kidney *What to do: At this time your pelvic cultures will take a couple days to return. However if needed we will call you and started on antibiotics. No sign of kidney infection or urinary tract infection at this time no need for antibiotics now *Continue to take medications as directed Motrin 600 mg every 6 hours if needed for [id number] Tylenol 1000 mg every 6 hours if needed for [id number] pain *Follow up with your primary care provider in 2-3 days or call [phone] *Return to ER if you should have increasing pain, fever blood in urine [or] any new, worsening or concerning symptoms Prescriptions: No Action hydrocodone-acetaminophen 5-325 mg tablet 1 tab PO BID PRN (Reason: pain) Qty: 14 0RF Referrals: Miscellaneous,Doctor, MD [Primary Care Provider] - Stand Alone Forms: Patient Portal/API
[2022-06-10 04:31] LABS: Chlamydia trachomatis Negative (Negative); Mycoplasma genitalium Negative (Negative); Neisseria gonorrhoeae Negative (Negative)
== END 2022-06-05 21:34 | disposition home or self-care (01) ==
PROVIDERS: Emergency Medicine; Emergency Provider Emergency Medicine
DX: N23 Unspecified renal colic (principal)
CPT/HCPCS: 36415; 80053; 81003; 81025; 85025; 87070; 87077; 87147; 87205; 87210; 87491; 87563; 87591; 99283